=== PATIENT | male | born 1950 | race Caucasian/White ===

== ENCOUNTER 2019-07-04 13:21 | Emergency (ER) | payer OTHER ==
[~2019-07-04] VITALS: Ht 167.6 cm; Wt 79.9 kg
[2019-07-04 13:25] VITALS: Ht 167.6 cm; Wt 79.9 kg
[2019-07-04 15:24] VITALS: BP 138/73
== END 2019-07-04 13:25 | disposition home or self-care (01) ==
LOC: ED 13:21
DX: L03.115 Cellulitis of right lower limb (principal); I10 Essential (primary) hypertension; E11.9 Type 2 diabetes mellitus without complications
CPT/HCPCS: J0696